=== PATIENT | male | born 1970 | race African-American/Black ===

== ENCOUNTER 2017-04-27 11:22 | Inpatient (IN) | payer OTHER ==
[2017-04-27 13:58] VITALS: BMI 29.4
--- NOTE | 2017-04-27 17:10 | HP ---
CIWA Score - CIWA Score Nausea/Vomitin-Mild Nausea/No Vomiting Muscle Tremors: 4-Moderate,w/Arms Extend Anxiety: 4-Mod. Anxious/Guarded Agitation: 4-Moderately Restless Paroxysmal Sweats: 1-Minimal Palms Moist Orientation: 0-Oriented Tacttile Disturbances: 1-Very Mild Itch/Numbness Auditory Disturbances: 0-None Visual Disturbances: 0-None Headache: 0-None Present CIWA-Ar Total Score: 15 Admission ROS BHS - HPI Chief Complaint: withdrawal sx Allergies/Adverse Reactions: Allergies Allergy/AdvReac Type Severity Reaction Status Date / Time No Known Allergies Allergy Verified 04/27/17 15:22 History of Present Illness: 46 years old male with long history of alcohol nicotine dependence has positive ppd and chest pain 04/24/17 treated at [facility], negative finding discharged follow up with primary care physician has depression is admitted to detox Exam Limitations: No Limitations - Ebola screening Have you traveled outside of the country in the last 21 days: No (N) Have you had contact with anyone from an Ebola affected area: No Have you been sick,other than usual withdrawal symptoms: No Do you have a fever: No - Review of Systems Constitutional: Changes in sleep, Weight Stable EENT: reports: No Symptoms Reported Respiratory: reports: No Symptoms reported Cardiac: reports: No Symptoms Reported GI: reports: Nausea, Poor Fluid Intake, Abdominal cramping : reports: No Symptoms Reported Musculoskeletal: reports: No Symptoms Reported Integumentary: reports: No Symptoms Reported Neuro: reports: Tremors Endocrine: reports: No Symptoms Reported Hematology: reports: No Symptoms Reported Psychiatric: reports: Judgement Intact, Orientated x3, Anxious, Depressed Other Systems: Reviewed and Negative Patient History - Patient Medical History Hx Anemia: No Hx Asthma: No Hx Chronic Obstructive Pulmonary Disease (COPD): No Hx Cancer: No Hx Cardiac Disorders: No Hx Congestive Heart Failure: No Hx Hypertension: No Hx Hypercholesterolemia: No Hx Pacemaker: No HX Cerebrovascular Accident: No Hx Seizures: No Hx Dementia: No Hx Diabetes: No Hx Gastrointestinal Disorders: No Hx Liver Disease: No Hx Genitourinary Disorders: No Hx Sexually Transmitted Disorders: No Hx Renal Disease (ESRD): No Hx Thyroid Disease: No Hx Human Immunodeficiency Virus (HIV): No Hx Hepatitis C: No Hx Depression: Yes Hx Suicide Attempt: No Hx Bipolar Disorder: No Hx Schizophrenia: No - Patient Surgical History Past Surgical History: No Hx Neurologic Surgery: No Hx Cataract Extraction: No Hx Cardiac Surgery: No Hx Lung Surgery: No Hx Breast Surgery: No Hx Breast Biopsy: No Hx Abdominal Surgery: No Hx Appendectomy: No Hx Cholecystectomy: No Hx Genitourinary Surgery: No Hx Orthopedic Surgery: No - PPD History Documented Results: Positive w/o proof Implanted On Prior R Admission?: No PPD to be Administered?: No - Smoking Cessation Smoking history: Current every day smoker Have you smoked in the past 12 months: Yes Aproximately how many cigarettes per day: 4 Cigars Per Day: 0 Hx Chewing Tobacco Use: No Initiated information on smoking cessation: Yes 'Breaking Loose' booklet given: 04/27/17 - Substance & Tx. History Hx Alcohol Use: Yes Hx Substance Use: Yes Substance Use Type: Alcohol, Marijuana Hx Substance Use Treatment: Yes (11/2016 [facility] - Substances Abused Alcohol Route: Oral Frequency: Daily Amount used: 1 pint vodka Age of first use: 14 Date of Last Use: 04/27/17 Marijuana/Hashish Route: Smoking Frequency: Daily Amount used: 2-3 blunts Age of first use: 14 Date of Last Use: 04/27/17 Cocaine Route: Smoking Frequency: 3-6 times per week Amount used: $200 Age of first use: 22 Date of Last Use: 04/24/17 Family Disease History - Family Disease History Family Disease History: Other: Mother () Admission Physical Exam BHS - Vital Signs Vital Signs: Vital Signs - 24 hr 04/27/17 13:57 Temperature 97.8 F Pulse Rate 84 Respiratory 20 Rate Blood Pressure 126/88 - Physical General Appearance: Yes: Nourished, Appropriately Dressed, Mild Distress, Tremorous, Irritable, Sweating, Anxious HEENTM: Yes: Hearing grossly Normal, Normal ENT Inspection, Normocephalic, Normal Voice Respiratory: Yes: Chest Non-Tender, Lungs Clear, Normal Breath Sounds, No Respiratory Distress, No Accessory Muscle Use Neck: Yes: Supple, Trachea in good position Breast: Yes: Breasts Symetrical Cardiology: Yes: Regular Rhythm, Regular Rate, S1, S2 Abdominal: Yes: Non Tender, Soft, Increased Bowel Sounds Genitourinary: Yes: Within Normal Limits Back: Yes: Normal Inspection Musculoskeletal: Yes: full range of Motion, Gait Steady Extremities: Yes: Normal Inspection, Normal Range of Motion, Non-Tender, Tremors Neurological: Yes: Fully Oriented, Alert, Motor Strength 5/5, Normal Response, Depressed Affect Integumentary: Yes: Warm Lymphatic: Yes: Within Normal Limits - Diagnostic (1) Alcohol dependence with uncomplicated withdrawal Current Visit: Yes Status: Acute (2) Cannabis dependence, uncomplicated Current Visit: Yes Status: Chronic (3) Depression (emotion) Current Visit: Yes Status: Suspected Qualifiers: Depression Type: dysthymia Qualified Code(s): F34.1 - Dysthymic disorder (4) Positive PPD, treated Current Visit: Yes Status: Resolved (5) Nicotine dependence Current Visit: Yes Status: Acute Qualifiers: Nicotine product type: cigarettes Substance use status: in withdrawal Qualified Code(s): F17.213 - Nicotine dependence, cigarettes, with withdrawal Cleared for Admission [facility] - Detox or Rehab [facility] Level of Care: Medically Managed Detox Regimen/Protocol: Librium S Breath Alcohol Content Breath Alcohol Content: 0 Urine Drug Screen - Results Drug Screen Negative: No Urine Drug Screen Results: THC-Marijuana, BZO-Benzodiazepines
[2017-04-27] MEDS ORDERED: ACETAMINOPHEN 325 MG TABLET (FP) PO PRN (17:15)
[2017-04-27] MEDS ORDERED: LOPERAMIDE HCL 2 MG CAPSULE PO PRN (17:15)
[2017-04-27] MEDS ORDERED: MENTHOL/PHENOL 1 EACH UD MM PRN (17:15)
[2017-04-27] MEDS ORDERED: guaiFENesin/D-METHORPHAN HB 10 ML UNIT-DOSE CUPS PO PRN (17:15)
[2017-04-27] MEDS ORDERED: MAGNESIUM HYDROX 2400MG/30ML ORAL SUSPENSION 30 ML CUP PO PRN (17:15)
[2017-04-27] MEDS ORDERED: MAGNESIUM CITRATE 300 ML BOTTLE PO PRN (17:15)
[2017-04-27] MEDS ORDERED: IBUPROFEN 400 MG TABLET (FP) PO PRN (17:15)
[2017-04-27] MEDS ORDERED: P-EPHED 60MG/TRIPROLIDI 2.5MG TABLET PO PRN (17:15)
[2017-04-27] MEDS ORDERED: chlordiazePOXIDE HCL 25 MG CAPSULE PO PRN (17:15)
[2017-04-27] MEDS ORDERED: MAG HYDROX/AL HYDROX/SIMETH 30 ML UNIT-DOSE CUP PO PRN (17:15)
[2017-04-27] MEDS ORDERED: NICOTINE POLACRILEX 2 MG GUM BC PRN (17:15)
[2017-04-27] MEDS: THIAMINE HCL 100 MG TABLET (FP) PO SCH (22:05)
[2017-04-27] MEDS: chlordiazePOXIDE HCL 25 MG CAPSULE PO SCH (22:05)
[2017-04-27 23:03] LABS: URINE APPEARANCE CLEAR; URINE BILIRUBIN NEGATIVE (NEGATIVE); URINE BLOOD 1+ (NEGATIVE); URINE COLOR STRAW; URINE GLUCOSE (UA) NEGATIVE (NEGATIVE); URINE KETONE NEGATIVE (NEGATIVE); URINE LEUK ESTERASE NEGATIVE (NEGATIVE); URINE NITRITE NEGATIVE (NEGATIVE); URINE PROTEIN NEGATIVE (NEGATIVE); URINE UROBILINOGEN NEGATIVE mg/dL (0.2-1.0)
[2017-04-27 23:13] LABS: URINE BACTERIA RARE /hpf (NONE SEEN)
[2017-04-28] MEDS: chlordiazePOXIDE HCL 25 MG CAPSULE PO SCH ×4 (05:08→22:27)
--- NOTE | 2017-04-28 09:53 | PN ---
[facility] CIWA - CIWA Score Nausea/Vomitin-No Nausea/No Vomiting Muscle Tremors: 4-Moderate,w/Arms Extend Anxiety: 4-Mod. Anxious/Guarded Agitation: 4-Moderately Restless Paroxysmal Sweats: 1-Minimal Palms Moist Orientation: 0-Oriented Tacttile Disturbances: 3-Moderate Itch/Numb/Burn Auditory Disturbances: 0-None Visual Disturbances: 0-None Headache: 0-None Present CIWA-Ar Total Score: 16 BHS Progress Note (SOAP) Subjective: ANXIETY,IRRITABILITY,SWEATS,INTERMITTENT SLEEP-BENADRYL NOT EFFECTIVE. REQUESTS PSYCH EVAL FOR INSOMNIA. Objective: 04/28/17 09:50 Vital Signs Temperature 97.6 F 04/28/17 09:20 Pulse Rate 61 04/28/17 09:20 Respiratory Rate 18 04/28/17 09:20 Blood Pressure 146/105 04/28/17 09:20 O2 Sat by Pulse Oximetry (%) Laboratory Last Values Urine Color Straw 04/27/17 22:40 Urine Appearance Clear 04/27/17 22:40 Urine pH 6.0 (5.0-8.0) 04/27/17 22:40 Ur Specific [place] 1.011 (1.001-1.035) 04/27/17 22:40 Urine Protein Negative (NEGATIVE) 04/27/17 22:40 Urine Glucose (UA) Negative (NEGATIVE) 04/27/17 22:40 Urine Ketones Negative (NEGATIVE) 04/27/17 22:40 Urine Blood 1+ (NEGATIVE) H 04/27/17 22:40 Urine Nitrite Negative (NEGATIVE) 04/27/17 22:40 Urine Bilirubin Negative (NEGATIVE) 04/27/17 22:40 Urine Urobilinogen Negative mg/dL (0.2-1.0) 04/27/17 22:40 Ur Leukocyte Esterase Negative (NEGATIVE) 04/27/17 22:40 Urine WBC (Auto) 1 /hpf (3-5) 04/27/17 22:40 Urine RBC (Auto) <1 /hpf (0-3) 04/27/17 22:40 Urine Bacteria Rare /hpf (NONE SEEN) 04/27/17 22:40 HIV 1&2 Antibody Screen Negative 04/27/17 15:00 HIV P24 Antigen Negative 04/27/17 15:00 OTHER LABS PENDING Assessment: 04/28/17 09:50 WITHDRAWAL SX Plan: CONTINUE DETOX PSYCH EVAL TODAY.
[2017-04-28] MEDS: NICOTINE 14 MG/24 HOURS TOPICAL PATCH TD SCH (10:05)
[2017-04-28] MEDS: PRENATAL VITAMINS W/ FOLIC ACID TABLET (FP) PO SCH (10:05)
[2017-04-28 10:12] LABS: HEMATOCRIT 41.9 % (35.4-49); HEMOGLOBIN 13.4 GM/dL (11.7-16.9); MCH 27.9 pg (25.7-33.7); MCHC 32.1 g/dl (32.0-35.9); MEAN PLT VOLUME 9.4 fl (7.5-11.1); PLATELET COUNT 208 K/MM3 (134-434); RBC 4.81 M/mm3 (4.00-5.60); RDW 14.8 % (11.9-15.9); WHITE BLOOD COUNT 6.1 K/mm3 (4.0-10.0)
[2017-04-28 11:37] LABS: CHLORIDE 108 mmol/L (98-107); POTASSIUM 4.2 mmol/L (3.5-5.1); SODIUM 140 mmol/L (136-145)
--- NOTE | 2017-04-28 11:45 | CONSULT ---
[facility] Psychiatric Consult - Data Date of interview: 04/28/17 Admission source: [facility] Identifying data: Readmission to [facility] for this 46 y/o AA male seeking detox treatment on for alcohol,marihuana and cocaine dependence ( negative toxicology on this admission).Patient is single,a father of two, domiciled,unemployed and supported by relatives. Substance Abuse History: Confirmed by patient in this interview.See details in current [facility] report : Smoking history: Current every day smoker. Have you smoked in the past 12 months: Yes. Aproximately how many cigarettes per day: 4. Cigars Per Day: 0. Hx Chewing Tobacco Use: No. Initiated information on smoking cessation: Yes. 'Breaking Loose' booklet given: 04/27/17. - Substance & Tx. History. Hx Alcohol Use: Yes. Hx Substance Use: Yes. Substance Use Type : Alcohol, Marijuana. Hx Substance Use Treatment: Yes (11/2016 [facility]). - Substances Abused. Alcohol. Route: Oral. Frequency: Daily. Amount used: 1 pint vodka. Age of first use: 14. Date of Last Use: 04/27/17. Marijuana/ Hashish. Route: Smoking. Frequency: Daily. Amount used: 2-3 blunts. Age of first use: 14. Date of Last Use: 04/27/17. Cocaine. Route: Smoking. Frequency: 3-6 times per week. Amount used: $200. Age of first use: 22. Date of Last Use: 04/24/17 Medical History: Patient endorses good general health. 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 Physical/Sexual Abuse/Trauma History: Patient denies. Additional Comment: Urine Drug Screen Results: THC-Marijuana, BZO- Benzodiazepines.Noted. Mental Status Exam - Mental Status Exam Alert and Oriented to: Time, Place, Person Cognitive Function: Good Patient Appearance: Well Groomed Mood: Hopeful, Euthymic Affect: Appropriate, Normal Range Patient Behavior: Appropriate, Cooperative Speech Pattern: Clear, Appropriate Voice Loudness: Normal Thought Process: Intact, Goal Oriented Thought Disorder: Not Present Hallucinations: Denies Suicidal Ideation: Denies Homicidal Ideation: Denies Insight/Judgement: Poor Sleep: Poorly, Difficulty falling asleep Appetite: Good Muscle strength/Tone: Normal Gait/Station: Normal Psychiatric Findings - Problem List ([place] 1, 2,3) (1) Alcohol dependence with uncomplicated withdrawal Current Visit: Yes Status: Acute (2) Cannabis dependence, uncomplicated Current Visit: Yes Status: Acute (3) Nicotine dependence Current Visit: Yes Status: Acute Qualifiers: Nicotine product type: cigarettes Substance use status: in withdrawal Qualified Code(s): F17.213 - Nicotine dependence, cigarettes, with withdrawal (4) Insomnia Current Visit: Yes Status: Acute - Initial Treatment Plan Initial Treatment Plan: Psychoeducation provided in session.Records revisited.Detoxification in progress.Trazodone 100 mg po hs.Ordered.Patient is made aware of risk of priapism.No past history of adverse effects.Consent ( verbal) received from patient for this careplan.Observation.
[2017-04-28 11:55] LABS: ALBUMIN 3.7 g/dl (3.4-5.0); ALK PHOS 51 U/L (45-117); ANION GAP 9 (8-16); BILIRUBIN,TOTAL 0.3 mg/dL (0.2-1.0); BLOOD UREA NITROGEN 14 mg/dL (7-18); CALCIUM 8.5 mg/dL (8.5-10.1); CO2 23 mmol/L (21-32); CREATININE 1.2 mg/dL (0.7-1.3); GLUCOSE,RANDOM 94 mg/dL (74-106); SGOT/AST 16 U/L (15-37); SGPT/ALT 21 U/L (12-78); TOT PROT 7.5 g/dl (6.4-8.2)
[2017-04-28] MEDS: THIAMINE HCL 100 MG TABLET (FP) PO SCH (22:27)
[2017-04-28] MEDS: traZODone HCL 100 MG TABLET (FP) PO SCH (22:27)
[2017-04-29] MEDS: chlordiazePOXIDE HCL 25 MG CAPSULE PO SCH ×3 (06:00→18:18)
[2017-04-29] MEDS: NICOTINE 14 MG/24 HOURS TOPICAL PATCH TD SCH (10:04)
[2017-04-29] MEDS: PRENATAL VITAMINS W/ FOLIC ACID TABLET (FP) PO SCH (10:04)
--- NOTE | 2017-04-29 10:31 | PN ---
[facility] CIWA - CIWA Score Nausea/Vomitin-No Nausea/No Vomiting Muscle Tremors: 4-Moderate,w/Arms Extend Anxiety: 4-Mod. Anxious/Guarded Agitation: 4-Moderately Restless Paroxysmal Sweats: 1-Minimal Palms Moist Orientation: 0-Oriented Tacttile Disturbances: 3-Moderate Itch/Numb/Burn Auditory Disturbances: 0-None Visual Disturbances: 0-None Headache: 0-None Present CIWA-Ar Total Score: 16 BHS Progress Note (SOAP) Subjective: ANXIETY,SWEATS,IRRITABILITY,FATIGUE Objective: 04/29/17 10:28 Vital Signs Temperature 96.8 F L 04/29/17 09:47 Pulse Rate 59 L 04/29/17 09:47 Respiratory Rate 18 04/29/17 09:47 Blood Pressure 145/105 04/29/17 09:47 O2 Sat by Pulse Oximetry (%) Laboratory Last Values WBC 6.1 K/mm3 (4.0-10.0) 04/28/17 06:00 RBC 4.81 M/mm3 (4.00-5.60) 04/28/17 06:00 Hgb 13.4 GM/dL (11.7-16.9) 04/28/17 06:00 Hct 41.9 % (35.4-49) 04/28/17 06:00 MCV 87.0 fl (80-96) 04/28/17 06:00 MCH 27.9 pg (25.7-33.7) 04/28/17 06:00 MCHC 32.1 g/dl (32.0-35.9) 04/28/17 06:00 RDW 14.8 % (11.9-15.9) 04/28/17 06:00 Plt Count 208 K/MM3 (134-434) 04/28/17 06:00 MPV 9.4 fl (7.5-11.1) 04/28/17 06:00 Sodium 140 mmol/L (136-145) 04/28/17 06:00 Potassium 4.2 mmol/L (3.5-5.1) 04/28/17 06:00 Chloride 108 mmol/L (98-107) H 04/28/17 06:00 Carbon Dioxide 23 mmol/L (21-32) 04/28/17 06:00 Anion Gap 9 (8-16) 04/28/17 06:00 BUN 14 mg/dL (7-18) D 04/28/17 06:00 Creatinine 1.2 mg/dL (0.7-1.3) 04/28/17 06:00 Creat Clearance w eGFR > 60 (>60) 04/28/17 06:00 Random Glucose 94 mg/dL (74-106) 04/28/17 06:00 Calcium 8.5 mg/dL (8.5-10.1) 04/28/17 06:00 Total Bilirubin 0.3 mg/dL (0.2-1.0) 04/28/17 06:00 AST 16 U/L (15-37) 04/28/17 06:00 ALT 21 U/L (12-78) D 04/28/17 06:00 Alkaline Phosphatase 51 U/L (45-117) 04/28/17 06:00 Total Protein 7.5 g/dl (6.4-8.2) 04/28/17 06:00 Albumin 3.7 g/dl (3.4-5.0) 04/28/17 06:00 Urine Color Straw 04/27/17 22:40 Urine Appearance Clear 04/27/17 22:40 Urine pH 6.0 (5.0-8.0) 04/27/17 22:40 Ur Specific [place] 1.011 (1.001-1.035) 04/27/17 22:40 Urine Protein Negative (NEGATIVE) 04/27/17 22:40 Urine Glucose (UA) Negative (NEGATIVE) 04/27/17 22:40 Urine Ketones Negative (NEGATIVE) 04/27/17 22:40 Urine Blood 1+ (NEGATIVE) H 04/27/17 22:40 Urine Nitrite Negative (NEGATIVE) 04/27/17 22:40 Urine Bilirubin Negative (NEGATIVE) 04/27/17 22:40 Urine Urobilinogen Negative mg/dL (0.2-1.0) 04/27/17 22:40 Ur Leukocyte Esterase Negative (NEGATIVE) 04/27/17 22:40 Urine WBC (Auto) 1 /hpf (3-5) 04/27/17 22:40 Urine RBC (Auto) <1 /hpf (0-3) 04/27/17 22:40 Urine Bacteria Rare /hpf (NONE SEEN) 04/27/17 22:40 RPR Titer Nonreactive (NONREACTIVE) 04/28/17 06:00 HIV 1&2 Antibody Screen Negative 04/27/17 15:00 HIV P24 Antigen Negative 04/27/17 15:00 Assessment: 04/29/17 10:33 WITHDRAWAL SX Plan: CONTINUE DETOX
[2017-04-29] MEDS: traZODone HCL 100 MG TABLET (FP) PO SCH (22:21)
[2017-04-29] MEDS: chlordiazePOXIDE 5 MG CAPSULE PO SCH (22:21)
[2017-04-29] MEDS: THIAMINE HCL 100 MG TABLET (FP) PO SCH (22:21)
[2017-04-30] MEDS: chlordiazePOXIDE 5 MG CAPSULE PO SCH ×4 (05:58→18:22)
--- NOTE | 2017-04-30 10:02 | PN ---
S Progress Note (SOAP) Subjective: ANXIETY,IRRITABILITY,PT CONCERNED THAT HE WOULD LIKE TO GO TO REHAB. POSSIBLE REHAB TO [facility] TOMORROW ONCE THEY HAVE BED AVAILABLE. Objective: 04/30/17 09:59 Vital Signs Temperature 95.9 F L 04/30/17 09:52 Pulse Rate 56 L 04/30/17 09:52 Respiratory Rate 18 04/30/17 09:52 Blood Pressure 133/93 04/30/17 09:52 O2 Sat by Pulse Oximetry (%) Laboratory Last Values WBC 6.1 K/mm3 (4.0-10.0) 04/28/17 06:00 RBC 4.81 M/mm3 (4.00-5.60) 04/28/17 06:00 Hgb 13.4 GM/dL (11.7-16.9) 04/28/17 06:00 Hct 41.9 % (35.4-49) 04/28/17 06:00 MCV 87.0 fl (80-96) 04/28/17 06:00 MCH 27.9 pg (25.7-33.7) 04/28/17 06:00 MCHC 32.1 g/dl (32.0-35.9) 04/28/17 06:00 RDW 14.8 % (11.9-15.9) 04/28/17 06:00 Plt Count 208 K/MM3 (134-434) 04/28/17 06:00 MPV 9.4 fl (7.5-11.1) 04/28/17 06:00 Sodium 140 mmol/L (136-145) 04/28/17 06:00 Potassium 4.2 mmol/L (3.5-5.1) 04/28/17 06:00 Chloride 108 mmol/L (98-107) H 04/28/17 06:00 Carbon Dioxide 23 mmol/L (21-32) 04/28/17 06:00 Anion Gap 9 (8-16) 04/28/17 06:00 BUN 14 mg/dL (7-18) D 04/28/17 06:00 Creatinine 1.2 mg/dL (0.7-1.3) 04/28/17 06:00 Creat Clearance w eGFR > 60 (>60) 04/28/17 06:00 Random Glucose 94 mg/dL (74-106) 04/28/17 06:00 Calcium 8.5 mg/dL (8.5-10.1) 04/28/17 06:00 Total Bilirubin 0.3 mg/dL (0.2-1.0) 04/28/17 06:00 AST 16 U/L (15-37) 04/28/17 06:00 ALT 21 U/L (12-78) D 04/28/17 06:00 Alkaline Phosphatase 51 U/L (45-117) 04/28/17 06:00 Total Protein 7.5 g/dl (6.4-8.2) 04/28/17 06:00 Albumin 3.7 g/dl (3.4-5.0) 04/28/17 06:00 Urine Color Straw 04/27/17 22:40 Urine Appearance Clear 04/27/17 22:40 Urine pH 6.0 (5.0-8.0) 04/27/17 22:40 Ur Specific [place] 1.011 (1.001-1.035) 04/27/17 22:40 Urine Protein Negative (NEGATIVE) 04/27/17 22:40 Urine Glucose (UA) Negative (NEGATIVE) 04/27/17 22:40 Urine Ketones Negative (NEGATIVE) 04/27/17 22:40 Urine Blood 1+ (NEGATIVE) H 04/27/17 22:40 Urine Nitrite Negative (NEGATIVE) 04/27/17 22:40 Urine Bilirubin Negative (NEGATIVE) 04/27/17 22:40 Urine Urobilinogen Negative mg/dL (0.2-1.0) 04/27/17 22:40 Ur Leukocyte Esterase Negative (NEGATIVE) 04/27/17 22:40 Urine WBC (Auto) 1 /hpf (3-5) 04/27/17 22:40 Urine RBC (Auto) <1 /hpf (0-3) 04/27/17 22:40 Urine Bacteria Rare /hpf (NONE SEEN) 04/27/17 22:40 RPR Titer Nonreactive (NONREACTIVE) 04/28/17 06:00 HIV 1&2 Antibody Screen Negative 04/27/17 15:00 HIV P24 Antigen Negative 04/27/17 15:00 Assessment: 04/30/17 10:02 WITHDRAWAL SX Plan: CONTINUE DETOX
[2017-04-30] MEDS: NICOTINE 14 MG/24 HOURS TOPICAL PATCH TD SCH (10:14)
[2017-04-30] MEDS: PRENATAL VITAMINS W/ FOLIC ACID TABLET (FP) PO SCH (10:14)
[2017-04-30] MEDS: traZODone HCL 100 MG TABLET (FP) PO SCH (22:17)
[2017-04-30] MEDS: THIAMINE HCL 100 MG TABLET (FP) PO SCH (22:17)
[2017-04-30] MEDS: chlordiazePOXIDE HCL 10 MG CAPSULE PO SCH (22:17)
[2017-05-01 06:25] VITALS: BP 133/81; PULSE 53; TEMP 97.7
[2017-05-01] MEDS: chlordiazePOXIDE HCL 10 MG CAPSULE PO SCH (07:38)
--- NOTE | 2017-05-01 10:00 | DS ---
[facility] Detox Discharge Summary Admission Date: 04/27/17 Discharge Date: 05/01/17 - History Present History: Alcohol Dependence, Cannabis Dependence Additional Comments: DETOX COMPLETED. ALERT O X 3. REFERRED TO [facility] TODAY. Pertinent Past History: SEE DX BELOW - Physical Exam Results Vital Signs: Vital Signs Temperature 97.7 F 05/01/17 06:25 Pulse Rate 53 L 05/01/17 06:25 Respiratory Rate 18 05/01/17 06:25 Blood Pressure 133/81 05/01/17 06:25 O2 Sat by Pulse Oximetry (%) Pertinent Admission Physical Exam Findings: WITHDRAWAL SX Laboratory Last Values WBC 6.1 K/mm3 (4.0-10.0) 04/28/17 06:00 RBC 4.81 M/mm3 (4.00-5.60) 04/28/17 06:00 Hgb 13.4 GM/dL (11.7-16.9) 04/28/17 06:00 Hct 41.9 % (35.4-49) 04/28/17 06:00 MCV 87.0 fl (80-96) 04/28/17 06:00 MCH 27.9 pg (25.7-33.7) 04/28/17 06:00 MCHC 32.1 g/dl (32.0-35.9) 04/28/17 06:00 RDW 14.8 % (11.9-15.9) 04/28/17 06:00 Plt Count 208 K/MM3 (134-434) 04/28/17 06:00 MPV 9.4 fl (7.5-11.1) 04/28/17 06:00 Sodium 140 mmol/L (136-145) 04/28/17 06:00 Potassium 4.2 mmol/L (3.5-5.1) 04/28/17 06:00 Chloride 108 mmol/L (98-107) H 04/28/17 06:00 Carbon Dioxide 23 mmol/L (21-32) 04/28/17 06:00 Anion Gap 9 (8-16) 04/28/17 06:00 BUN 14 mg/dL (7-18) D 04/28/17 06:00 Creatinine 1.2 mg/dL (0.7-1.3) 04/28/17 06:00 Creat Clearance w eGFR > 60 (>60) 04/28/17 06:00 Random Glucose 94 mg/dL (74-106) 04/28/17 06:00 Calcium 8.5 mg/dL (8.5-10.1) 04/28/17 06:00 Total Bilirubin 0.3 mg/dL (0.2-1.0) 04/28/17 06:00 AST 16 U/L (15-37) 04/28/17 06:00 ALT 21 U/L (12-78) D 04/28/17 06:00 Alkaline Phosphatase 51 U/L (45-117) 04/28/17 06:00 Total Protein 7.5 g/dl (6.4-8.2) 04/28/17 06:00 Albumin 3.7 g/dl (3.4-5.0) 04/28/17 06:00 Urine Color Straw 04/27/17 22:40 Urine Appearance Clear 04/27/17 22:40 Urine pH 6.0 (5.0-8.0) 04/27/17 22:40 Ur Specific [place] 1.011 (1.001-1.035) 04/27/17 22:40 Urine Protein Negative (NEGATIVE) 04/27/17 22:40 Urine Glucose (UA) Negative (NEGATIVE) 04/27/17 22:40 Urine Ketones Negative (NEGATIVE) 04/27/17 22:40 Urine Blood 1+ (NEGATIVE) H 04/27/17 22:40 Urine Nitrite Negative (NEGATIVE) 04/27/17 22:40 Urine Bilirubin Negative (NEGATIVE) 04/27/17 22:40 Urine Urobilinogen Negative mg/dL (0.2-1.0) 04/27/17 22:40 Ur Leukocyte Esterase Negative (NEGATIVE) 04/27/17 22:40 Urine WBC (Auto) 1 /hpf (3-5) 04/27/17 22:40 Urine RBC (Auto) <1 /hpf (0-3) 04/27/17 22:40 Urine Bacteria Rare /hpf (NONE SEEN) 04/27/17 22:40 RPR Titer Nonreactive (NONREACTIVE) 04/28/17 06:00 HIV 1&2 Antibody Screen Negative 04/27/17 15:00 HIV P24 Antigen Negative 04/27/17 15:00 - Treatment Hospital Course: Detox Protocol Followed, Detoxed Safely, Responded well, Discharged Condition Good, Rehab Referral Accepted Patient has Accepted a Rehab Referral to: [facility] - Medication Discharge Medications: Ambulatory Orders Trazodone HCl 100 mg PO HS #30 tablet 04/28/17 - Diagnosis (1) Alcohol dependence with uncomplicated withdrawal Status: Acute (2) Nicotine dependence Status: Acute Qualifiers: Nicotine product type: cigarettes Substance use status: in withdrawal Qualified Code(s): F17.213 - Nicotine dependence, cigarettes, with withdrawal (3) Cannabis dependence, uncomplicated Status: Acute (4) Cocaine dependence Status: Suspected Qualifiers: Substance use status: uncomplicated Qualified Code(s): F14.20 - Cocaine dependence, uncomplicated - AMA Did Patient Leave Against Medical Advice: No
--- NOTE | 2017-06-03 14:32 | EKG ---
Test Reason : Blood Pressure : / mmHG Vent. Rate : 069 BPM Atrial Rate : 069 BPM P-R Int : 154 ms QRS Dur : 102 ms QT Int : 418 ms P-R-T Axes : 061 030 195 degrees QTc Int : 447 ms NORMAL SINUS RHYTHM POSSIBLE LEFT ATRIAL ENLARGEMENT LEFT VENTRICULAR HYPERTROPHY WITH REPOLARIZATION ABNORMALITY CANNOT RULE OUT SEPTAL INFARCT , AGE UNDETERMINED ABNORMAL ECG NO PREVIOUS ECGS AVAILABLE Confirmed by MANUEL LYLE MD ([id number]) on 04/29/2017 7:54:31 AM Also confirmed by MANUEL LYLE MD ([id number]), department editor ISHA GARCIA ([id number] on 06/03/2017 2:32:39 PM Referred By: Confirmed By:MANUEL LYLE MD
== END 2017-05-01 09:33 | disposition home or self-care (01) | DRG 774 ==
LOC: YASAS 11:22 → Y3N 17:33
PROVIDERS: ADMIT Internal Medicine; ATTEND Internal Medicine
PROC: HZ2ZZZZ Detoxification Services for Substance Abuse Treatment (ICD-10-PCS; principal; 2017-04-27)
DX: F10.230 Alcohol dependence with withdrawal, uncomplicated (principal); F14.20 Cocaine dependence, uncomplicated; F12.20 Cannabis dependence, uncomplicated; F17.213 Nicotine dependence, cigarettes, with withdrawal; F32.9 Major depressive disorder, single episode, unspecified; G47.00 Insomnia, unspecified; R76.11 Nonspecific reaction to tuberculin skin test without active tuberculosis
CPT/HCPCS: 36415; 71046-TC-FY; 80053; 81003; 81015; 85027; 86593; 87389; 93005; 93010

== ENCOUNTER 2019-05-01 14:25 | Emergency (ER) | payer OTHER ==
[2019-05-01 14:46] VITALS: PULSE 72; BMI 32.3
[2019-05-01] MEDS ORDERED: METHOCARBAMOL 500 MG TABLET PO ONE (15:12)
[2019-05-01] MEDS ORDERED: KETOROLAC TROMETHAMINE 60 MG/2 ML VIAL IM ONE (15:12)
[2019-05-01] MEDS ORDERED: METHOCARBAMOL 500 MG TABLET ONE (15:17)
[2019-05-01] MEDS ORDERED: KETOROLAC TROMETHAMINE 60 MG/2 ML VIAL ONE (15:17)
--- NOTE | 2019-05-01 15:28 | PDOC ---
History of Present Illness - General History Source: Patient Exam Limitations: Clinical Condition - History of Present Illness Initial Comments: 05/01/19 15:26 Patient with no significant past medical history present with complaint of 5- day history of left shoulder pain which started at pain to left elbow which lasted for a day and now is moved to left shoulder with worsening pain when moved to left shoulder no elevate left upper arm. Patient reported taking Excedrin this morning for pain which has mildly improved pain and went from 10 out of 10 pain to 7 out of 10 pain. Denies weakness in left shoulder or arm. Denies numbness or tingling sensation, chest pain, shortness of breath, dizziness, palpitations. Denies injuries to left shoulder or previous trauma to left shoulder. Denies any other symptoms Occurred: reports: other (5 days) Pain Location: reports: upper extremity (left shoulder) Method of Injury: Yes: unknown Modifying Factors: improves with: pain medication (excedrine) Loss of Consciousness: no loss of consciousness Associated Symptoms (Fall): denies symptoms <Milton Suarez - Last Filed: 05/01/19 16:05> <Mariel Hurst - Last Filed: 05/01/19 16:11> - General Chief Complaint: Pain, Acute Stated Complaint: LT SHOULDER PAIN Time Seen by Provider: 05/01/19 15:08 Past History - Past Medical History Anemia: No Asthma: No Cancer: No Cardiac Disorders: No CVA: No COPD: No CHF: No Dementia: No Diabetes: No GI Disorders: No Disorders: No HTN: No Hypercholesterolemia: No Kidney Stones: No Liver Disease: No Seizures: No Thyroid Disease: No - Surgical History Abdominal Surgery: No Appendectomy: No Cardiac Surgery: No Cholecystectomy: No Lung Surgery: No Neurologic Surgery: No Orthopedic Surgery: No - Reproductive History Testicular Surgery: No - Psycho Social/Smoking Cessation Hx Smoking History: Current every day smoker Have you smoked in the past 12 months: Yes Number of Cigarettes Smoked Daily: 4 Cigars Per Day: 0 Information on smoking cessation initiated: Yes 'Breaking Loose' booklet given: 04/27/17 Hx Alcohol Use: Yes Drug/Substance Use Hx: Yes Substance Use Type: Alcohol, Marijuana Hx Substance Use Treatment: Yes (11/2016 [facility]) <Milton Suarez - Last Filed: 05/01/19 16:05> <Mariel Hurst - Last Filed: 05/01/19 16:11> - Past Medical History Allergies/Adverse Reactions: Allergies Allergy/AdvReac Type Severity Reaction Status Date / Time No Known Allergies Allergy Verified 05/01/19 14:43 Home Medications: Ambulatory Orders Ketorolac Tromethamine [Toradol] 10 mg PO Q8H PRN #21 tablet 05/01/19 Methocarbamol [Robaxin -] 500 mg PO TID PRN #21 tablet 05/01/19 Trauma Specific PMHX - Complaint Specific PMHX Arthritis: No <Milton Suarez - Last Filed: 05/01/19 16:05> Review of Systems - Review of Systems Able to Perform ROS?: Yes Is the patient limited Occitan proficient: No Constitutional: No: Chills, Fever, Malaise HEENTM: No: Symptoms Reported, See HPI, Eye Pain, Blurred Vision, Tearing, Recent change in vision, Double Vision, Cataracts, Ear Pain, Ocular Prothesis, Ear Discharge, Nose Pain, Nose Congestion, Tinnitus, Nose Bleeding, Hearing Loss , Throat Pain, Throat Swelling, Mouth Pain, Dental Problems, Difficulty Swallowing, Mouth Swelling, Other Respiratory: No: Symptoms reported, See HPI, Cough, Orthopnea, Shortness of Breath, SOB with Exertion, SOB at Rest, Stridor, Wheezing, Productive cough, Hemoptysis, Other Cardiac (ROS): No: Symptoms Reported, See HPI, Chest Pain, Edema, Irregular Heart Rate, Lightheadedness, Palpitations, Syncope, Chest Tightness, Other ABD/GI: No: Symptoms Reported, See HPI, Nausea, Vomiting Musculoskeletal: Yes: Symptoms Reported, See HPI, Joint Pain (left elbow), Muscle Pain (left anterior and posterior shoulder), Joint Stiffness (left shoulder) Integumentary: No: Symptoms Reported, See HPI Neurological: No: Symptoms reported, See HPI, Numbness, Paresthesia, Tingling All Other Systems: Reviewed and Negative <DanielaMilton - Last Filed: 05/01/19 16:05> *Physical Exam - Vital Signs Last Vital Signs Temp Pulse Resp BP Pulse Ox 97.8 F 72 18 125/89 100 05/01/19 14:43 05/01/19 14:43 05/01/19 14:43 05/01/19 14:43 05/01/19 14:43 - Physical Exam 05/01/19 15:24 GENERAL: Well developed, well nourished. Awake and alert in mild acute distress. CARDIOVASCULAR: Regular rate and rhythm. No murmurs, rubs, or gallops. PULMONARY: No evidence of respiratory distress. Lungs clear to auscultation bilaterally. No wheezing, rales or rhonchi. MUSCULOSKELETAL : mild tenderness over anterior and posterior aspect of left shoulder and over AC joint of left shoulder. 5 out of 5 muscle strength left shoulder. Mild tenderness over olecranon of left elbow. No visible swelling or ecchymosis. No bony deformities SKIN: Warm and dry. Normal capillary refill. No rashes. No swelling, ecchymosis or bruising to left shoulder or elbow. NEUROLOGICAL: Alert, awake, appropriate. No motor deficits in the lower extremities. Gait is normal without ataxia. PSYCHIATRIC: Cooperative. Good eye contact. Appropriate mood and affect. General Appearance: Yes: Nourished, Appropriately Dressed, Apparent Distress, Mild Distress <Milton Suarez - Last Filed: 05/01/19 16:05> - Vital Signs Last Vital Signs Temp Pulse Resp BP Pulse Ox 97.8 F 72 18 125/89 100 05/01/19 14:43 05/01/19 14:43 05/01/19 14:43 05/01/19 14:43 05/01/19 14:43 <Mariel Hurst - Last Filed: 05/01/19 16:11> ED Treatment Course - RADIOLOGY Radiology Studies Ordered: Category Date Time Status ELBOW-LEFT [RAD] Stat Radiology 05/01/19 15:21 Ordered SHOULDER W/TRANS-RIGHT [RAD] Stat Radiology 05/01/19 15:13 Ordered <Milton Suarez - Last Filed: 05/01/19 16:05> - Medications Given in the ED: ED Medications Discontinued Medications Generic Name Dose Route Start Last Admin Trade Name Freq PRN Reason Stop Dose Admin Ketorolac Tromethamine 60 mg 05/01/19 15:12 05/01/19 15:24 Toradol Injection - IM 05/01/19 15:13 60 mg ONCE ONE Administration Methocarbamol 500 mg 05/01/19 15:12 05/01/19 15:24 Robaxin - PO 05/01/19 15:13 500 mg ONCE ONE Administration <Mariel Hurst - Last Filed: 05/01/19 16:11> Medical Decision Making - Medical Decision Making 05/01/19 15:27 Patient with no significant past medical history present with complaint of 5- day history of left shoulder pain which started at pain to left elbow which lasted for a day and now is moved to left shoulder with worsening pain when moved to left shoulder no elevate left upper arm. Patient reported taking Excedrin this morning for pain which has mildly improved pain and went from 10 out of 10 pain to 7 out of 10 pain. Denies weakness in left shoulder or arm. Denies numbness or tingling sensation, chest pain, shortness of breath, dizziness, palpitations. Denies injuries to left shoulder or previous trauma to left shoulder. Denies any other symptoms Exam significant for mild tenderness over anterior and posterior aspect of left shoulder and over AC joint of left shoulder. 5 out of 5 muscle strength to left shoulder. Mild tenderness over olecranon left elbow. Normal cardio exam. Lungs clear to auscultation bilateral. EKG done from triage shows left ventricular hypertrophy which patient report has always been case EKG due to enlarged heart. Compared EKG to previous EKG done 2 years ago shows no changes. Patient symptoms likely muscle pain. Toradol 60 mg IM ordered for pain Robaxin 500 mg ordered for spasm. X-ray of left shoulder and left elbow ordered to rule out acute abnormality 05/01/19 16:05 X-ray of left shoulder and elbow read by radiology shows no acute abnormality. Patient symptoms likely muscle strain and stable for discharge on p.o. Toradol as needed for pain Robaxin for spasm with orthopedics follow-up. <Milton Suarez - Last Filed: 05/01/19 16:05> - Medical Decision Making The patient was seen and evaluated in conjunction with midlevel provider under my direct supervision, ancillary studies were reviewed. I agree with the plan as outlined DIONNA Suarez. HPI, workup/dispo as outlined. VS reviewed, wnl. EKG with sinus rhythm with diffuse TWI in all leads, which is unchanged from prior EKG no cp or sob no syncope neuro intact. analgesia, muscle relaxants xray shoulder unremarkable anticipate discharge, pcp followup, return precautions 05/01/19 16:09 <Mariel Hurst - Last Filed: 05/01/19 16:11> Discharge - Discharge Information Problems reviewed: Yes - Admission No <Milton Suarez - Last Filed: 05/01/19 16:05> <Mariel Hurst Natalijunior - Last Filed: 05/01/19 16:11> - Discharge Information Clinical Impression/Diagnosis: Left elbow pain Pain in left shoulder Qualifiers: Chronicity: acute Qualified Code(s): M25.512 - Pain in left shoulder Condition: Stable Disposition: HOME - Additional Discharge Information Prescriptions: Ketorolac Tromethamine [Toradol] 10 mg PO Q8H PRN #21 tablet PRN Reason: shoulder pain Methocarbamol [Robaxin -] 500 mg PO TID PRN #21 tablet PRN Reason: shoulder pain - Follow up/Referral Referrals: Ebenezer Jeffers DO [Staff Physician] - - Patient Discharge Instructions Patient Printed Discharge Instructions: DI for Shoulder Pain Additional Instructions: Your shoulder x-ray was normal and shows no dislocation. Your symptoms likely shoulder strain however small tear in the shoulder muscle would not show on x- ray you will need MRI to show muscle symptoms. The prescribed medication as prescribed for pain and follow-up referred orthopedics for possible MRI
[2019-05-01 16:29] VITALS: BP 120/86; TEMP 97.2
--- NOTE | 2019-05-02 14:03 | EKG ---
Test Reason : Blood Pressure : / mmHG Vent. Rate : 063 BPM Atrial Rate : 063 BPM P-R Int : 138 ms QRS Dur : 098 ms QT Int : 422 ms P-R-T Axes : 058 023 171 degrees QTc Int : 431 ms NORMAL SINUS RHYTHM LEFT VENTRICULAR HYPERTROPHY WITH REPOLARIZATION ABNORMALITY SEPTAL INFARCT (CITED ON OR BEFORE [place] ischemia ABNORMAL ECG WHEN COMPARED WITH ECG OF 27-APR-2017 19:31, NO SIGNIFICANT CHANGE WAS FOUND Confirmed by Samantha Harrison ([id number]) on 05/02/2019 2:02:44 PM Referred By: Confirmed By:Samantha Harrison
== END 2019-05-01 16:25 | disposition home or self-care (01) ==
LOC: JER 14:25
PROC: 3E0233Z Introduction of Anti-inflammatory into Muscle, Percutaneous Approach (ICD-10-PCS; principal; 2019-05-01)
DX: M25.512 Pain in left shoulder (principal); M25.522 Pain in left elbow; F17.210 Nicotine dependence, cigarettes, uncomplicated
CPT/HCPCS: 73030-TC-LT-FY; 73070-TC-LT-FY; 93005; 93010; 99282-25

== ENCOUNTER 2021-04-23 15:32 | Emergency (ER) | payer SELFPAY ==
[2021-04-23 15:40] VITALS: BP 134/95; PULSE 69; TEMP 98.1; BMI 27.7
[2021-04-23] MEDS ORDERED: ACETAMINOPHEN 1000 MG/100 ML BAG IVPB ONE (16:43)
[2021-04-23] MEDS ORDERED: morphine CARPU-JECT 4 MG/1 ML DISP.SYRIN IVPUSH ONE (16:44)
[2021-04-23] MEDS ORDERED: ACETAMINOPHEN INJECTION 100 ML IVPB ONE (16:46)
[2021-04-23 17:45] LABS: BASO % 0.7 % (0-2.0); EOS % 1.2 % (0-4.5); HEMATOCRIT 42.1 % (35.4-49); HEMOGLOBIN 13.6 GM/dL (11.7-16.9); LYMPH % 34.1 % (8-40); MCH 28.3 pg (25.7-33.7); MCHC 32.3 g/dl (32.0-35.9); MEAN CELL VOLUME 87.6 fl (80-96); MEAN PLT VOLUME 9.6 fl (7.5-11.1); MONO % 8.8 % (3.8-10.2); NEUT % 55.2 % (42.8-82.8); PLATELET COUNT 175 10^3/uL (134-434); RDW 14.7 % (11.9-15.9); WHITE BLOOD COUNT 4.3 K/mm3 (4.0-10.0)
[2021-04-23 17:52] LABS: INR 1.11 (0.83-1.09); PROTHROMBIN TIME (PATIENT) 12.8 SEC (9.7-13.0)
[2021-04-23 17:55] LABS: ACTIVATED PTT 35.1 SECONDS (25.2-36.5)
[2021-04-23 18:24] LABS: ALBUMIN 3.7 g/dl (3.4-5.0); CALCIUM 8.7 mg/dL (8.5-10.1)
[2021-04-23 18:26] LABS: BLOOD UREA NITROGEN 8.7 mg/dL (7-18)
[2021-04-23 18:28] LABS: CREATININE 1.1 mg/dL (0.55-1.3)
[2021-04-23 18:30] LABS: BILIRUBIN,TOTAL 0.3 mg/dL (0.2-1); TOT PROT 7.1 g/dl (6.4-8.2)
[2021-04-23] MEDS ORDERED: ASPIRIN 81 MG CHEWABLE TABLETS PO ONE (21:36)
[2021-04-23] MEDS ORDERED: ASPIRIN 81 MG CHEWABLE TABLETS ONE (22:02)
== END 2021-04-23 22:11 | disposition left against medical advice (07) ==
LOC: JER 15:32
PROC: 3E0333Z Introduction of Anti-inflammatory into Peripheral Vein, Percutaneous Approach (ICD-10-PCS; principal; 2021-04-23)
PROC: 3E033NZ Introduction of Analgesics, Hypnotics, Sedatives into Peripheral Vein, Percutaneous Approach (ICD-10-PCS; 2021-04-23)
DX: R07.9 Chest pain, unspecified (principal)
CPT/HCPCS: 36415; 71045-TC-FY; 71275-TC; 74174-TC; 80053; 80061; 82550; 82553; 84443; 84484; 85025; 85610; 85730; 93005; 93010; 99285-25; C9803; J0131; Q9967; U0003; U0005